=== PATIENT | male | born 1960 | race Caucasian/White ===

== ENCOUNTER 2020-12-05 10:48 | Emergency (ER) | payer OTHER ==
[~2020-12-05] VITALS: Ht 170.2 cm; Wt 87.1 kg
[2020-12-05] MEDS ORDERED: IBUP400 PO (12:55)
[2020-12-05] MEDS ORDERED: LIDO700A20 TOP (12:55)
[2020-12-05] MEDS ORDERED: ACET500 PO (12:55)
[2020-12-05] MEDS ORDERED: Robaxin750 MG PO (12:55)
== END 2020-12-05 12:59 | disposition home or self-care (01) ==
LOC: ER 10:48
DX: S39.012A Strain of muscle, fascia and tendon of lower back, initial encounter (principal); S33.5XXA Sprain of ligaments of lumbar spine, initial encounter; Z87.81 Personal history of (healed) traumatic fracture; X58.XXXA Exposure to other specified factors, initial encounter; Y93.16 Activity, rowing, canoeing, kayaking, rafting and tubing
CPT/HCPCS: 99283; A9270